=== PATIENT | male | born 2000 | race Asian ===

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

== ENCOUNTER 2019-01-09 16:42 | Emergency (ER) | payer OTHER ==
--- NOTE | 2019-01-09 18:15 | ED ---
HPI Chest Pain - HPI Summary HPI Summary: Patient was seen in the sub-waiting room. This patient is a 18 year old M presenting to [facility] with a chief complaint of left-sided chest pressure. He first felt a pain 2 days ago along his left anterior axillary line at the fourth inner costal space, aggravated by breathing. Today while walking, he felt the same pain again as well as left-sided chest pressure. Patient reports chest pressure when breathing deeply. Patient denies SOB. On , pt was seen for pneumothorax and had to stay 1 night. He was operated on by Dr. Stauffer, surgery. He had a tube at his left axillary line at fourth inner costal space, which was removed before he left the hospital. He was told that his lungs were all clear post-op. Patient has since seen his family doctor and he also saw Dr. Caceres, pulmonology, 2-[address] Caceres recommended a CT scan to check for blebs, but it has not yet been scheduled because the insurance just approved the scan. No PMHx of asthma. No FHx of respiratory issues. Home Medications Medication Instructions Recorded Confirmed Type NK [No Home Medications Reported] 11/21/18 01/09/19 History - History of Current Complaint Chief Complaint: EDChestWallPain Time Seen by Provider: 01/09/19 17:00 Hx Obtained From: Patient, Family/[employer] Leather [employer] - Mother Onset/Duration: Started Days Ago, Atraumatic, Still Present Timing: Intermittent Initial Severity: Moderate Current Severity: Moderate Pain Intensity: 3 Pain Scale Used: 0-10 Numeric Chest Pain Location: Discrete at: - Pain left anterior axillary line at the fourth inner costal space. Left-sided chest pressure. Aggravating Factor(s): Movement Alleviating Factor(s): Nothing Associated Signs and Symptoms: Positive: Chest Pain - Left-sided chest pressure when breathing deeply, Other: - Pain at left anterior axillary line at the fourth inner costal space. Negative: Shortness of Breath - Additional Pertinent History Primary Care Physician: [id number] - Allergy/Home Medications Allergies/Adverse Reactions: Allergies Allergy/AdvReac Type Severity Reaction Status Date / Time minocycline Allergy Hives Verified 01/09/19 16:53 PMH/Surg Hx/FS Hx/Imm Hx Endocrine/Hematology History: Denies: Hx Diabetes Cardiovascular History: Denies: Hx Hypertension Respiratory History: Reports: Other Respiratory Problems/Disorders - PNEUMO History: Denies: Hx Renal Disease Sensory History: Denies: Hx Legally Blind, Hx Deafness Opthamlomology History: Denies: Hx Legally Blind Neurological History: Denies: Hx Dementia - Surgical History Surgery Procedure, Year, and Place: Thoracotomy 11/21/2018 Infectious Disease History: No Infectious Disease History: Denies: Traveled Outside the [place] in Last 30 Days - Family History Known Family History: Negative: Respiratory Disease - Social History Alcohol Use: None Hx Substance Use: No Substance Use Type: Reports: None Hx Tobacco Use: No Smoking Status (MU): Never Smoked Tobacco Review of Systems Positive: Chest Pain - Left-sided chest pressure when breathing deeply Negative: Shortness Of Breath Positive: Other - Pain at left anterior axillary line at the fourth inner costal space All Other Systems Reviewed And Are Negative: Yes Physical Exam - Summary Physical Exam Summary: Appearance: Ill-appearing, moderate pain distress, well-nourished Skin: Warm, color reflects adequate perfusion, dry. Scar on left axillary line at fourth inner costal space. Head: Normal Head/Face inspection, atraumatic Eyes: Conjunctiva clear ENT: Normal inspection Neck: Supple, no nodes, no JVD Respiratory: Lungs clear, normal breath sounds, no respiratory distress Cardio: RRR, No murmur, pulses normal, brisk capillary refill Abdomen: Soft, nontender Bowel sounds: Present Musculoskeletal: Strength Intact/ROM intact, no calf tenderness, no edema. Psychological: Normal Neuro: Alert, muscle tone normal, no focal deficit Triage Information Reviewed: Yes Vital Signs On Initial Exam: Initial Vitals Temp Pulse Resp BP Pulse Ox 99.9 F 100 16 145/94 98 01/09/19 16:51 01/09/19 16:51 01/09/19 16:51 01/09/19 16:51 01/09/19 16:51 Vital Signs Reviewed: Yes Diagnostics - Vital Signs Vital Signs Temp Pulse Resp BP Pulse Ox 01/09/19 16:51 99.9 F 100 16 145/94 98 - Laboratory Lab Statement: Any lab studies that have been ordered have been reviewed, and results considered in the medical decision making process. - Radiology Chest X-Ray Radiology Interpretation Completed By: Radiologist Summary of Radiographic Findings: 18:01. SMALL LEFT-SIDED PNEUMOTHORAX. ED Physician has reviewed this imaging report. Re-Evaluation - Re-Evaluation 1 Re-Evaluation Time: 21:24 Comment: Vital signs: HR 85 bpm, BP 115/65, O2 sat 99%. Chest Pain Course/Dx - Course Course Of Treatment: This patient is a 18 year old M presenting to [facility] with a chief complaint of left-sided pressure. Chest x-ray showed a small-sided small pneumothorax. I consulted Dr. Humphrey, surgery, who scheduled an outpatient chest x-ray with the patient for tomorrow. Pt was then d/c with a dx of pneumothorax. - Diagnoses Provider Diagnoses: Pneumothorax - Provider Notifications Discussed Care Of Patient With: Rodger Henao - Radiology Time Discussed With Above Provider: 18:01 - Spoke about imaging results. Pt has a small pneumothorax. Discharge - Sign-Out/Discharge Documenting (check all that apply): Patient Departure - D/C home Patient Received Moderate/Deep Sedation with Procedure: No - Discharge Plan Condition: Stable Disposition: HOME Patient Education Materials: Spontaneous Pneumothorax (ED) Forms: *School Release Referrals: Luigi Humphrey MD [Medical Doctor] - 1 Day Eneida Stevens MD [Primary Care Provider] - Additional Instructions: Dr. Humphrey has personally reviewed your xrays and has determined that the pneumothorax you have on the left at this time does not require a chest tube or any further treatment at this time. He also felt the CT scan of your chest that Dr. Caceres recommended did not need to be perfomed as an emergency test in the ER tonight. You should still have a CT of your chest scheduled as Dr. Caceres prescribed. Dr. Humphrey has ordered a repeat chest xray to be done as an outpatient, in the xray department at [facility], tomorrow 01/10/19 at 0800. He has placed the order for this, and he has ordered that you should wait after the xray is completed to hear from Dr. Humphrey whether you need further treatment based on those xray results. He will arrange for you to come to the ER if you do need further treatment. Return to the ER if you have any new or worsening symptoms. - Billing Disposition and Condition Condition: STABLE Disposition: Home - Attestation Statements Document Initiated by Scribe: Yes Documenting Scribe: Everardo Berry Provider For Whom Scribe is Documenting (Include Credential): MD Dottie Pelletieribe Attestation: Everardo Cash, scribed for Gia Tomas MD on 01/10/19 at 0225. Status of Scribe Document: Viewed Consult Consult: 19:40 - Dr. Luigi Humphrey, surgery, has put in an order for an outpatient chest x -ray tomorrow.
[2019-01-09 21:52] VITALS: BP 125/68
== END 2019-01-09 23:01 | disposition home or self-care (01) ==
LOC: ED 16:42
DX: J93.9 Pneumothorax, unspecified (principal)
CPT/HCPCS: 36415; 71046; 86703; 99283